=== PATIENT | female | born 1990 | race Caucasian/White ===

== ENCOUNTER 2016-10-04 16:26 | Emergency (ER) | payer OTHER ==
[~2016-10-04] VITALS: Wt 51.0 kg
[~2016-10-04 16:26] MED LIST: CEPH-443 PO; CIPR500T4 PO; CODE118S PO; DIAZ-90 PO; HYDR-906 PO; IBUP-1542 PO; IBUP800T25 PO; NAPR-260 PO; ONDA4TAB14 PO; ONDA4TAB8 PO; PHEN-538 PO
[2016-10-04] MEDS ORDERED: FLUT9.9S NASAL (17:04)
[2016-10-04] MEDS ORDERED: IBUP-1542 PO (17:04)
--- NOTE | 2016-10-04 17:08 | ERD ---
ER Documentation Chief Complaint Date/Time DATE: 10/04/16 TIME: 17:06 Chief Complaint Back pain, cough HPI 26-year-old female comes in with right-sided lower back pain that radiates to right leg, as well as cough congestion for approximately 2 days now. Patient describes as radiating pain, sharp, achy, moderate pain he has had for a month now, she states that it improved with the injection that gave her last time. She denies saddle anesthesia or loss of bowel bladder function. She also complains of a cough, dry, no fever, shortness of breath, chest pain. ROS All systems reviewed and are negative except as per history of present illness. Medications Home Meds Active Scripts Ibuprofen* (Motrin*) 600 Mg Tab, 600 MG PO Q6, #30 TAB Prov:AGNES SWANSON PA-C 10/04/16 Fluticasone Propionate (Flonase Allergy Relief) 9.9 Ml [place].susp, 1 SPRAY NASAL DAILY, #1 BOTTLE TO EACH NOSTRIL Prov:AGNES SWANSON PA-C 10/04/16 Diazepam* (Valium*) 5 Mg Tablet, 5 MG PO Q8 Y for MUSCLE SPASMS, #15 TAB Prov:MIKE WATKINS PA-C 08/18/16 Naproxen* (Naprosyn*) 500 Mg Tablet, 500 MG PO BID Y for PAIN AND/OR INFLAMMATION, #30 TAB Prov:MIKE WATKINS PA-C 08/18/16 Phenazopyridine Hcl* (Pyridium*) 200 Mg Tab, 200 MG PO TID Y for URINARY PAIN, # 6 TAB Prov:BJORN DÍAZ NP 07/27/16 Ondansetron (Ondansetron Odt) 4 Mg Tab.rapdis, 4 MG PO Q8 Y for NAUSEA AND/OR VOMITING, #30 TAB Prov:BJORN DÍAZ NP 07/27/16 Hydrocodone/Acetaminophen ([place] 5-325 Tablet) 1 Each Tablet, 1 TAB PO Q6H Y for PAIN, #20 TAB Prov:BJORN DÍAZ NP 07/27/16 Ciprofloxacin Hcl* (Ciprofloxacin Hcl*) 500 Mg Tablet, 500 MG PO BID for 10 Days , TAB Prov:BJORN DÍAZ NP 07/27/16 Ibuprofen* (Motrin*) 800 Mg Tab, 800 MG PO Q8 Y for PAIN AND OR ELEVATED TEMP, # 30 TAB Prov:SARANYA REEVES NP 06/16/16 Ibuprofen* (Motrin*) 600 Mg Tab, 600 MG PO Q6 for 7 Days, #30 TAB 0 Refills Prov:KE KENNEDY PA-C 02/29/16 Cephalexin* (Keflex*) 500 Mg Capsule, 500 MG PO TID for 3 Days, CAP Prov:ARLENEDENIRUBI DO 10/22/15 Ibuprofen* (Motrin*) 600 Mg Tab, 600 MG PO Q6H Y for PAIN AND OR ELEVATED TEMP, #14 TAB Prov:ARLENERUBI DO 10/22/15 Promethazine w/Codeine* (Phenergan w/Codeine* Syrup) 473 Ml Syrup, 5 ML PO Q6H Y for COUGH for 7 Days, ML Prov:DEANNA LAN MD 09/18/15 Ibuprofen* (Motrin*) 600 Mg Tab, 600 MG PO Q6H Y for PAIN AND OR ELEVATED TEMP, #30 Prov:WILLI BLEVINS PA-C 04/25/15 Reported Medications Ondansetron Hcl* (Zofran*) 4 Mg Tablet, 4 MG PO Q6H Y for NAUSEA AND OR VOMITING , TAB 09/21/14 Cephalexin* (Keflex*) 500 Mg Capsule, 500 MG PO BID X 7 DAYS, CAP 09/21/14 Ibuprofen* (Ibuprofen*) 600 Mg Tablet, 600 MG PO Q6-8 HOURS Y for PAIN, TAB 09/21/14 Allergies Allergies: Coded Allergies: No Known Drug Allergies (Verified Allergy, Mild, 10/22/15) PMhx/Soc History of Surgery: No Anesthesia Reaction: No Hx Neurological Disorder: No Hx Respiratory Disorders: No Hx Cardiac Disorders: No Hx Psychiatric Problems: No Hx Miscellaneous Medical Probl: No Hx Alcohol Use: No Hx Substance Use: No Hx Tobacco Use: No Physical Exam Vitals Vital Signs Date Time Temp Pulse Resp B/P Pulse Ox O2 Delivery O2 Flow Rate FiO2 10/04/16 16:50 98.3 89 20 102/60 98 Physical Exam General: Well-developed, well-nourished. The patient appears in no acute distress. HEENT: Head is normocephalic, atraumatic. No scleral icterus. Pupils are equal , round, and reactive. Oral mucous membranes are moist. No pharyngeal erythema. Neck: Supple. Nontender. Lungs: Clear to auscultation. Normal air movement. Heart: Regular rate and rhythm. S1 and S2 are normal. No murmurs, gallops, or rubs. Abdomen: Soft, nontender, nondistended. Bowel sounds are normoactive. Back: No midline tenderness, no step-offs, atraumatic. Patient has strength 5 out of 5 bilaterally to lower extremities. Extremities: No clubbing or cyanosis. Normal pulses. Moving extremities x 4. No weakness. Neurologic: Alert and oriented 3. No focal deficits. Skin: Normal turgor. No rash or lesions. Procedures/MDM The patient is a 26 who comes in with an acute upper respiratory infection, presumed viral. The patient has a differential diagnosis of a viral upper respiratory infection, bacterial upper respiratory infection, bronchitis, pneumonia, pharyngitis, laryngitis, epiglottitis, croup, pneumonia. Patient has a normal pulmonary examination, clear breath sounds, normal pulse oximetry, with no corrective measures needed at this time. Fluids, rest, antipyretics were encouraged. Secondarily she is here for low back pain on the right side. She has some sciatica symptoms, do not see any neurologic deficits, signs of cauda equina or epidural abscess or sepsis. She states that the Toradol worked for last time, I did state that patient is being seen in for recheck at this time and we would be able to give her a pain prescription which she feels comfortable at this time living with. Departure Diagnosis: Primary Impression: URI (upper respiratory infection) Additional Impression: Back pain Condition: Good Patient Instructions: Back Pain W/ Sciatica, Uri, Viral, No Abx (Adult) Additional Instructions: Call your primary care doctor TOMORROW for an appointment during the next 1-2 days.See the doctor sooner or return here if your condition worsens before your appointment time. AGNES SWANSON PA-C Oct 04, 2016 17:08
== END 2016-10-04 17:05 | disposition home or self-care (01) ==
LOC: FTE 16:26 → E/R 17:05
DX: J06.9 Acute upper respiratory infection, unspecified (principal)
CPT/HCPCS: 99283

== ENCOUNTER 2017-03-03 22:29 | Emergency (ER) | payer OTHER ==
[~2017-03-03] VITALS: Ht 157.5 cm; Wt 50.5 kg
[~2017-03-03 22:29] MED LIST changes: +FLUT9.9S NASAL
[2017-03-03 22:31] VITALS: Ht 157.5 cm; Wt 50.5 kg
[2017-03-04 00:06] LABS: URINE BLOOD (Dip) POC Negative (NEGATIVE)
[2017-03-04] MEDS ORDERED: CEPH-443 PO (00:37)
[2017-03-04] MEDS ORDERED: PHEN-538 PO (00:37)
--- NOTE | 2017-03-04 00:43 | ERD ---
ER Documentation Chief Complaint Date/Time DATE: 03/04/17 TIME: 00:41 Chief Complaint LEFT SIDED ABD PAIN RADAITING TO BACK X 3 DAYS HPI Patient is a 26-year-old female who is complaining of dysuria and increased urinary frequency for the past 3 days. She also has lower back pain is bilateral and achy. Last menstrual period was on the 15. Denies any fever, nausea, vomiting, hematuria. ROS All systems reviewed and are negative except as per history of present illness. Medications Home Meds Active Scripts Phenazopyridine Hcl* (Pyridium*) 200 Mg Tab, 200 MG PO TID Y for URINARY PAIN, # 6 TAB Prov:NORI ORTIZ PA-C 03/04/17 Cephalexin* (Keflex*) 500 Mg Capsule, 500 MG PO BID for 5 Days, CAP Prov:NORI ORTIZ PA-C 03/04/17 Ibuprofen* (Motrin*) 600 Mg Tab, 600 MG PO Q6, #30 TAB Prov:AGNES SWANSON PA-C 10/04/16 Fluticasone Propionate (Flonase Allergy Relief) 9.9 Ml [place].susp, 1 SPRAY NASAL DAILY, #1 BOTTLE TO EACH NOSTRIL Prov:AGNES SWANSON PA-C 10/04/16 Diazepam* (Valium*) 5 Mg Tablet, 5 MG PO Q8 Y for MUSCLE SPASMS, #15 TAB Prov:MIKE WATKINS PA-C 08/18/16 Naproxen* (Naprosyn*) 500 Mg Tablet, 500 MG PO BID Y for PAIN AND/OR INFLAMMATION, #30 TAB Prov:MIKE WATKINS PA-C 08/18/16 Phenazopyridine Hcl* (Pyridium*) 200 Mg Tab, 200 MG PO TID Y for URINARY PAIN, # 6 TAB Prov:BJORN DÍAZ NP 07/27/16 Ondansetron (Ondansetron Odt) 4 Mg Tab.rapdis, 4 MG PO Q8 Y for NAUSEA AND/OR VOMITING, #30 TAB Prov:BJORN DÍAZ NP 07/27/16 Hydrocodone/Acetaminophen ([place] 5-325 Tablet) 1 Each Tablet, 1 TAB PO Q6H Y for PAIN, #20 TAB Prov:BJORN DÍAZ NP 07/27/16 Ciprofloxacin Hcl* (Ciprofloxacin Hcl*) 500 Mg Tablet, 500 MG PO BID for 10 Days , TAB Prov:BJORN DÍAZ NP 07/27/16 Ibuprofen* (Motrin*) 800 Mg Tab, 800 MG PO Q8 Y for PAIN AND OR ELEVATED TEMP, # 30 TAB Prov:SARANYA REEVES NP 06/16/16 Ibuprofen* (Motrin*) 600 Mg Tab, 600 MG PO Q6 for 7 Days, #30 TAB 0 Refills Prov:KE KENNEDY PA-C 02/29/16 Cephalexin* (Keflex*) 500 Mg Capsule, 500 MG PO TID for 3 Days, CAP Prov:GREENRUBI DO 10/22/15 Ibuprofen* (Motrin*) 600 Mg Tab, 600 MG PO Q6H Y for PAIN AND OR ELEVATED TEMP, #14 TAB Prov:GREENRUBI DO 10/22/15 Promethazine w/Codeine* (Phenergan w/Codeine* Syrup) 473 Ml Syrup, 5 ML PO Q6H Y for COUGH for 7 Days, ML Prov:DEANNA LAN MD 09/18/15 Ibuprofen* (Motrin*) 600 Mg Tab, 600 MG PO Q6H Y for PAIN AND OR ELEVATED TEMP, #30 Prov:WILLI BLEVINS PA-C 04/25/15 Reported Medications Ondansetron Hcl* (Zofran*) 4 Mg Tablet, 4 MG PO Q6H Y for NAUSEA AND OR VOMITING , TAB 09/21/14 Cephalexin* (Keflex*) 500 Mg Capsule, 500 MG PO BID X 7 DAYS, CAP 09/21/14 Ibuprofen* (Ibuprofen*) 600 Mg Tablet, 600 MG PO Q6-8 HOURS Y for PAIN, TAB 09/21/14 Allergies Allergies: Coded Allergies: No Known Drug Allergies (Verified Allergy, Mild, 10/22/15) PMhx/Soc History of Surgery: No Anesthesia Reaction: No Hx Neurological Disorder: No Hx Respiratory Disorders: No Hx Cardiac Disorders: No Hx Psychiatric Problems: No Hx Miscellaneous Medical Probl: No Hx Alcohol Use: No Hx Substance Use: No Hx Tobacco Use: No Smoking Status: Never smoker FmHx Family History: No diabetes Physical Exam Vitals Vital Signs Date Time Temp Pulse Resp B/P Pulse Ox O2 Delivery O2 Flow Rate FiO2 03/03/17 22:31 98.5 83 20 101/64 98 Physical Exam General: well developed, well nourished, alert, nontoxic, no distress Head: normocephalic, atraumatic Eyes: PERRL, normal conjunctiva Neck: Supple, nontender, no lymphadenopathy, no midline tenderness Respiratory: Clear to auscaultation bilaterally, speaks in full sentences, no use of accesory muscles or labored breathing, no rales, ronchi, or wheezing Cardiovascular: RRR, No murmurs GI: soft, non tender, non distended, negative murphys sign, negative mcburneys point tenderness, no cva tenderness bilaterally, no rebound or guarding Back: no midline tenderness, no step offs or bony abnormalities, sensation to light touch in tact Extremities: moving all extremities normally, normal gait, no edema Results 24 hrs Laboratory Tests Test 03/04/17 00:10 Bedside Urine pH (LAB) 6.0 Bedside Urine Protein (LAB) Trace Bedside Urine Glucose (UA) Negative Bedside Urine Ketones (LAB) Negative Bedside Urine Blood Negative Bedside Urine Nitrite (LAB) Negative Bedside Urine Leukocyte Esterase (L Trace Procedures/MDM 26-year-old female presents with dysuria and increased urinary frequency. Her vital signs are all within normal limits and she is well-appearing in no distress. She has a benign abdominal exam and she has no CVA tenderness. No tenderness over the gallbladder of the appendix. I doubt any emergent cause of her symptoms including pyelonephritis, appendicitis, kidney stones, acute abdomen. Urine did show evidence of possible urinary tract infection she will be treated with Keflex and Pyridium. Recommended this patient follow up with her primary care doctor within 48 hours or return to the emergency room for any worsening of symptoms. However this time I do believe there is suitable for outpatient management. I answered all their questions and they agreed with the plan and were discharged home. Departure Diagnosis: Primary Impression: Cystitis Condition: Stable Patient Instructions: Cystitis Additional Instructions: Call your primary care doctor TOMORROW for an appointment during the next 1-2 days.See the doctor sooner or return here if your condition worsens before your appointment time. NORI ORTIZ PA-C Mar 04, 2017 00:42
== END 2017-03-04 00:46 | disposition home or self-care (01) ==
LOC: FTE 22:29
DX: N30.90 Cystitis, unspecified without hematuria (principal)
CPT/HCPCS: 81003; Z7502; 99283

== ENCOUNTER 2017-05-18 13:05 | Emergency (ER) | payer OTHER ==
[~2017-05-18] VITALS: Ht 157.5 cm; Wt 52.0 kg
[2017-05-18 13:24] VITALS: Ht 157.5 cm; Wt 52.0 kg
[2017-05-18] MEDS ORDERED: KETOROLAC 30 MG INJ IM STA (14:09)
--- NOTE | 2017-05-18 14:27 | ERD ---
ER Documentation Chief Complaint Date/Time DATE: 05/18/17 TIME: 14:14 Chief Complaint Complains of right leg, abdominal,back pain and headache x 3 days HPI This is a 27 year old female presenting to ER with complaints of abdominal pain , right lower back pain and right leg pain x 3 days. Patient states she has generalized, non specific abdominal pain and when asked where she has pain she motions over entire abdomen. Patient also states she has had a lot of "reflux. " No nausea or vomiting. No fevers. No pelvic pain or vaginal bleeding. ROS All systems reviewed and are negative except as per history of present illness. Medications Home Meds Active Scripts Ibuprofen* (Motrin*) 400 Mg Tab, 400 MG PO Q6, #15 TAB Prov:HERBERT SHERMAN NP 05/18/17 Nitrofurantoin Monohyd Macrocr* (Macrobid*) 100 Mg Capsr, 100 MG PO BID for 5 Days, CAP Prov:HERBERT SHERMAN NP 05/18/17 Phenazopyridine Hcl* (Pyridium*) 200 Mg Tab, 200 MG PO TID Y for URINARY PAIN, # 6 TAB Prov:NORI ORTIZ PA-C 03/04/17 Cephalexin* (Keflex*) 500 Mg Capsule, 500 MG PO BID for 5 Days, CAP Prov:NORI ORTIZ PA-C 03/04/17 Ibuprofen* (Motrin*) 600 Mg Tab, 600 MG PO Q6, #30 TAB Prov:AGNES SWANSON PA-C 10/04/16 Fluticasone Propionate (Flonase Allergy Relief) 9.9 Ml [place].susp, 1 SPRAY NASAL DAILY, #1 BOTTLE TO EACH NOSTRIL Prov:AGNES SWANSON PA-C 10/04/16 Diazepam* (Valium*) 5 Mg Tablet, 5 MG PO Q8 Y for MUSCLE SPASMS, #15 TAB Prov:MIKE WATKINS PA-C 08/18/16 Naproxen* (Naprosyn*) 500 Mg Tablet, 500 MG PO BID Y for PAIN AND/OR INFLAMMATION, #30 TAB Prov:MIKE WATKINS PA-C 08/18/16 Phenazopyridine Hcl* (Pyridium*) 200 Mg Tab, 200 MG PO TID Y for URINARY PAIN, # 6 TAB Prov:BJORN DÍAZ NP 07/27/16 Ondansetron (Ondansetron Odt) 4 Mg Tab.rapdis, 4 MG PO Q8 Y for NAUSEA AND/OR VOMITING, #30 TAB Prov:BJORN DÍAZ NP 07/27/16 Hydrocodone/Acetaminophen ([place] 5-325 Tablet) 1 Each Tablet, 1 TAB PO Q6H Y for PAIN, #20 TAB Prov:BJORN DÍAZ NP 07/27/16 Ciprofloxacin Hcl* (Ciprofloxacin Hcl*) 500 Mg Tablet, 500 MG PO BID for 10 Days , TAB Prov:BJORN DÍAZ NP 07/27/16 Ibuprofen* (Motrin*) 800 Mg Tab, 800 MG PO Q8 Y for PAIN AND OR ELEVATED TEMP, # 30 TAB Prov:SARANYA REEVES NP 06/16/16 Ibuprofen* (Motrin*) 600 Mg Tab, 600 MG PO Q6 for 7 Days, #30 TAB 0 Refills Prov:KE KENNEDY PA-C 02/29/16 Cephalexin* (Keflex*) 500 Mg Capsule, 500 MG PO TID for 3 Days, CAP Prov:RUBI JACOBS DO 10/22/15 Ibuprofen* (Motrin*) 600 Mg Tab, 600 MG PO Q6H Y for PAIN AND OR ELEVATED TEMP, #14 TAB Prov:RUBI JACOBS DO 10/22/15 Promethazine w/Codeine* (Phenergan w/Codeine* Syrup) 473 Ml Syrup, 5 ML PO Q6H Y for COUGH for 7 Days, ML Prov:DEANNA LAN MD 09/18/15 Ibuprofen* (Motrin*) 600 Mg Tab, 600 MG PO Q6H Y for PAIN AND OR ELEVATED TEMP, #30 Prov:WILLI BLEVINS PA-C 04/25/15 Reported Medications Ondansetron Hcl* (Zofran*) 4 Mg Tablet, 4 MG PO Q6H Y for NAUSEA AND OR VOMITING , TAB 09/21/14 Cephalexin* (Keflex*) 500 Mg Capsule, 500 MG PO BID X 7 DAYS, CAP 09/21/14 Ibuprofen* (Ibuprofen*) 600 Mg Tablet, 600 MG PO Q6-8 HOURS Y for PAIN, TAB 09/21/14 Allergies Allergies: Coded Allergies: No Known Drug Allergies (Verified Allergy, Mild, 10/22/15) PMhx/Soc History of Surgery: No Anesthesia Reaction: No Hx Neurological Disorder: No Hx Respiratory Disorders: No Hx Cardiac Disorders: No Hx Psychiatric Problems: No Hx Miscellaneous Medical Probl: No Hx Alcohol Use: No Hx Substance Use: No Hx Tobacco Use: No Physical Exam Vitals Vital Signs Date Time Temp Pulse Resp B/P Pulse Ox O2 Delivery O2 Flow Rate FiO2 05/18/17 18:24 69 18 102/63 100 Room Air 05/18/17 13:24 98.4 70 20 100/56 100 Physical Exam Const: No acute distress, alert Head: Atraumatic Eyes: Normal Conjunctiva ENT: Normal External Ears, Nose and Mouth. Neck: Full range of motion..~ No meningismus. Resp: Clear to auscultation bilaterally. No wheezing, rhonchi or crackles. Cardio: Regular rate and rhythm, no murmurs Abd: Soft, non tender, non distended. Normal bowel sounds Skin: No petechiae or rashes Back: No midline or flank tenderness Ext: No cyanosis, or edema. No erythema. Neur: Awake and alert Psych: Normal Mood and Affect Results 24 hrs Laboratory Tests Test 05/18/17 14:52 Bedside Urine pH (LAB) 5.5 Bedside Urine Protein (LAB) Negative Bedside Urine Glucose (UA) Negative Bedside Urine Ketones (LAB) Negative Bedside Urine Blood Negative Bedside Urine Nitrite (LAB) Negative Bedside Urine Leukocyte Esterase (L 1+ Current Medications Medications (Trade) Dose Ordered Sig/Stefany Route PRN Reason Start Time Stop Time Status Last Admin Dose Admin Ketorolac Tromethamine (Toradol) 30 mg ONCE STAT IM 05/18/17 14:09 05/18/17 14:11 DC 05/18/17 14:56 Famotidine (Pepcid) 20 mg ONCE ONCE PO 05/18/17 14:30 05/18/17 14:31 DC 05/18/17 14:56 Miscellaneous Medication (Gi Cocktail (2)) 40 ml ONCE ONCE PO 05/18/17 14:30 05/18/17 14:31 DC 05/18/17 14:56 Acetaminophen/ Hydrocodone Bitart ([place] (5/325)) 1 tab ONCE ONCE PO 05/18/17 16:00 05/18/17 16:01 DC 05/18/17 15:42 Procedures/MDM MDM: 27 year old female presents to ER with generalized, non-specific abdominal pain, right back pain and right leg pain x 3 days. Patient's abdominal pain is non specific and generalized. Patient given Toradol, Pepcid and Gi cocktail while in the ED. Upon reassessment, patient states abdominal pain has resolved however she continues to have right knee pain. No trauma or injury to leg or knee recently per patient. No swelling on physical exam. Patient is able to ambulate without difficulty. An xray and ultrasound was ordered given patient's continued pain. XR right knee Reviewed by radiologist as normal. Ultrasound right leg reviewed by radiologist as no sonographic evidence for deep venous thrombosis. Urine dip shows 1+ leukocyte esterase otherwise negative. Urine is negative. Upon recheck, patient's pain has improved. Vitals are stable. No fevers. Low suspicion for acute dislocation, fracture or DVT. Differential diagnosis includes but not limited to muscle strain, osteoarthritis, sciatica and muscle spasm. Differential diagnosis includes but not limited to acute appendicitis, diverticulitis, diverticulosis, bowel obstruction, constipation, infectious colitis, irritable bowel syndrome, inflammatory bowel disease, viral gastroenteritis, abdominal aortic aneurysm, food intolerance, celiac disease, UTI, pyelonephritis, nephrolithiasis, acute urinary retention or colorectal cancer. I doubt any emergent conditions such as appendicitis, diverticulitis, bowel obstruction, abdominal aortic aneurysm at this time due to normal vital signs and normal lab results. Patient is appropriate for outpatient management. Instructed patient to return to ED in 8 hours for abdominal pain recheck. Instructed patient to follow-up with primary care provider in the next 2-3 days for reassessment and additional management. Return to ED for any high fever, chest pain, difficulty breathing, shortness breath, wheezing, vomiting, diarrhea, abdominal pain or any new or worsening symptoms. Patient verbalizes understanding. All questions answered at discharge. Disclaimer: Inadvertent spelling and grammatical errors are likely due to EHR/ dictation software use and do not reflect on the overall quality of patient care. Also, please note that the electronic time recorded on this note does not necessarily reflect the actual time of the patient encounter. Departure Diagnosis: Primary Impression: Pain of right leg Condition: Stable HERBERT SHERMAN NP May 18, 2017 14:25
[2017-05-18] MEDS ORDERED: LIDOCAINE/MYLANTA 40 ML BTL PO ONE (14:30)
[2017-05-18] MEDS ORDERED: FAMOTIDINE 20 MG TAB PO ONE (14:30)
[2017-05-18 14:46] LABS: URINE BLOOD (Dip) POC Negative (NEGATIVE)
[2017-05-18] MEDS ORDERED: HYDROCODONE/APAP (5/325) TAB PO ONE (16:00)
--- NOTE | 2017-05-18 16:11 | RADRPT ---
PROCEDURE: RIGHT knee x-ray CLINICAL INDICATION: Knee pain TECHNIQUE: AP, lateral and tunnelviews of the knee were obtained. COMPARISON: 02/29/2016 FINDINGS: There is normal mineralization. No acute fracture or dislocation is seen. There is no joint effusion. There are no significant degenerative changes. There is no significant soft tissue swelling. RPTAT: AA IMPRESSION: Normal x-ray of the right knee. .Vazquez Sloan MD, MD Date Time Electronically viewed and signed by .Vazquez Sloan MD, on 05/18/2017 16:11 .S/
--- NOTE | 2017-05-18 17:42 | RADRPT ---
PROCEDURE: US Lower extremity Venous. CLINICAL INDICATION: Lower extremity pain and swelling TECHNIQUE: Multiple sonographic images of the right lower extremity deep venous system was obtaine d utilizing grayscale, color-flow, compressive sonography and doppler imaging with augmentation. Th e images were reviewed on a PACS workstation. COMPARISON: None. FINDINGS: There is normal compressibility and flow within the right common femoral, superficial femoral and po pliteal veins. Antegrade flow seen in the posterior tibial and peroneal veins. IMPRESSION: No sonographic evidence for deep venous thrombosis. RPTAT: AA .Jonh Park MD, Date Time Electronically viewed and signed by .Jonh Park MD, on 05/18/2017 17:41 .P/
[2017-05-18] MEDS ORDERED: IBUP400T22 PO (18:11)
[2017-05-18] MEDS ORDERED: NITR-58 PO (18:11)
[2017-05-18 18:24] VITALS: BP 102/63; PULSE 69; RESP 18
== END 2017-05-18 18:19 | disposition home or self-care (01) ==
LOC: FTE 13:05
DX: M79.604 Pain in right leg (principal)
CPT/HCPCS: 73562; 81003; 93971; 96372; J1885; Z7502; Z7610

== ENCOUNTER 2017-07-07 11:47 | Emergency (ER) | payer OTHER ==
[~2017-07-07] VITALS: Ht 152.4 cm; Wt 52.0 kg
[~2017-07-07 11:47] MED LIST changes: +IBUP400T22 PO; +NITR-58 PO
[2017-07-07 11:52] VITALS: Ht 152.4 cm; Wt 52.0 kg
[2017-07-07 12:52] LABS: BASOPHIL # 0.1 10^3/ul (0.0-0.1); BASOPHILS % 0.8 % (0.0-2.0); EOSINOPHILS # 0.1 10^3/ul (0.0-0.5); EOSINOPHILS % 0.8 % (0.0-7.0); HEMATOCRIT 34.8 % (37.0-47.0); HEMOGLOBIN 11.2 g/dl (12.0-16.0); LYMPHOCYTES # 1.3 10^3/ul (0.8-2.9); LYMPHOCYTES % 22.3 % (15.0-51.0); MEAN CORPUSCULAR HEMOGLOBIN 24.6 pg (29.0-33.0); MEAN CORPUSCULAR HGB CONC 32.2 g/dl (32.0-37.0); MEAN CORPUSCULAR VOLUME 76.5 fl (82.0-101.0); MEAN PLATELET VOLUME 9.8 fl (7.4-10.4); MONOCYTE # 0.5 10^3/ul (0.3-0.9); MONOCYTES % 8.8 % (0.0-11.0); NEUTROPHILS % 67.1 % (39.0-77.0); PLATELET COUNT 222 10^3/UL (140-415); RED BLOOD COUNT 4.55 10^6/ul (4.20-5.40)
[2017-07-07 13:05] LABS: ADD UMIC YES; UR ASCORBIC ACID NEGATIVE (NEGATIVE); UR BILIRUBIN (Dip) NEGATIVE (NEGATIVE); UR BLOOD (Dip) NEGATIVE (NEGATIVE); UR CLARITY SLIGHTLY CLOUDY (CLEAR); UR COLOR YELLOW (YELLOW); UR GLUCOSE (Dip) NEGATIVE (NEGATIVE); UR KETONES (Dip) NEGATIVE (NEGATIVE); UR LEUKOCYTE ESTERASE (Dip) 3+ Leu/ul (NEGATIVE); UR MUCUS FEW /HPF (NONE SEEN); UR NITRITE (Dip) NEGATIVE (NEGATIVE); UR RBC 7 /HPF (0-5); UR SPECIFIC GRAVITY (Dip) 1.027 (1.003-1.030); UR SQUAMOUS EPITHELIAL CELL FEW /HPF (FEW); UR TOTAL PROTEIN (Dip) NEGATIVE (NEGATIVE); UR UROBILINOGEN (Dip) NEGATIVE (NEGATIVE)
[2017-07-07 13:16] LABS: ALBUMIN 4.1 g/dl (3.3-4.9); ALBUMIN/GLOBULIN RATIO 1.24; BILIRUBIN,INDIRECT 0.3 mg/dl (0-1.1); BILIRUBIN,TOTAL 0.3 mg/dl (0.2-1.3); CALCIUM 9.2 mg/dl (8.4-10.2); CREATININE 0.65 mg/dl (0.44-1.00); POTASSIUM 3.4 mmol/L (3.5-5.1); TOTAL PROTEIN 7.4 g/dl (6.1-8.1)
--- NOTE | 2017-07-07 13:39 | RADRPT ---
PROCEDURE: US Abdomen. CLINICAL INDICATION: Right upper quadrant Abdominal pain. TECHNIQUE: Multiple real-time images were acquired of the patient's abdomen and retroperitoneum ut ilizing a high resolution transducer. COMPARISON: None FINDINGS: The liver demonstrates normal echogenicity and size and no focal lesions are seen. The liver measure s 12.2 cm. No gallstones are identified within the gallbladder. There is no pericholecystic fluid or gallbladd er wall thickening. No intra or extrahepatic biliary dilatation is seen. The common bile duct measu res 1.6 mm in maximal dimension. Visualized portions of the pancreas are unremarkable. The right kidney is unremarkable measuring 9.2 cm. No collecting system dilatation, stone or solid m ass. IMPRESSION: Unremarkable examination. RPTAT: PP .Shad Marlow MD, MD Date Time Electronically viewed and signed by .Shad Marlow MD, MD on 07/07/2017 13:39 .M/
--- NOTE | 2017-07-07 13:54 | RADRPT ---
PROCEDURE: US OB. CLINICAL INDICATION: Pelvic pain TECHNIQUE: Transabdominal and transvaginal views of the pelvis are available for review. COMPARISON: No prior studies are available for comparison. FINDINGS: A single intrauterine gestational sac containing a pole and yolk sac is present. The measureme nts are as follows Keys-rump length:2.4 mm heart rate:115 bpm Ultrasound estimated gestational age:5 weeks 6 days' ELSI: 03/03/2018 No ovarian or adnexal mass lesion is seen. There is no free fluid. IMPRESSION: 1. Single live intrauterine with an estimated gestational age of 5 weeks 6 days. 2. ELSI 03/03/2018 RPTAT: HSM .Shad Marlow MD, Date Time Electronically viewed and signed by .Shad Marlow MD, MD on 07/07/2017 13:54 .M/
[2017-07-07] MEDS ORDERED: CEPH-443 PO (14:18)
--- NOTE | 2017-07-28 14:18 | ERD ---
ER Documentation Chief Complaint Chief Complaint RT UPPER ABD PAIN WITH NAUSEA X 4 DAYS , 7 WEEKS PREG HPI 27 year old female presents with abdominal lance x 4 days. 7 weeks . nausea but no vomitting. no dysuria or hematuria but increased urinaary frequency. no vag bleeding. no fever ROS All systems reviewed and are negative except as per history of present illness. Medications Home Meds Active Scripts Cephalexin* (Keflex*) 500 Mg Capsule, 500 MG PO BID for 5 Days, CAP Prov:NORI ORTIZ PA-C 07/07/17 Ibuprofen* (Motrin*) 400 Mg Tab, 400 MG PO Q6, #15 TAB Prov:HERBERT SHERMAN NP 05/18/17 Nitrofurantoin Monohyd Macrocr* (Macrobid*) 100 Mg Capsr, 100 MG PO BID for 5 Days, CAP Prov:HERBERT SHERMAN NP 05/18/17 Phenazopyridine Hcl* (Pyridium*) 200 Mg Tab, 200 MG PO TID Y for URINARY PAIN, # 6 TAB Prov:NORI ORTIZ PA-C 03/04/17 Cephalexin* (Keflex*) 500 Mg Capsule, 500 MG PO BID for 5 Days, CAP Prov:NORI ORTIZ PA-C 03/04/17 Ibuprofen* (Motrin*) 600 Mg Tab, 600 MG PO Q6, #30 TAB Prov:AGNES SWANSON PA-C 10/04/16 Fluticasone Propionate (Flonase Allergy Relief) 9.9 Ml [place].susp, 1 SPRAY NASAL DAILY, #1 BOTTLE TO EACH NOSTRIL Prov:AGNES SWANSON PA-C 10/04/16 Diazepam* (Valium*) 5 Mg Tablet, 5 MG PO Q8 Y for MUSCLE SPASMS, #15 TAB Prov:MIKE WATKINS PA-C 08/18/16 Naproxen* (Naprosyn*) 500 Mg Tablet, 500 MG PO BID Y for PAIN AND/OR INFLAMMATION, #30 TAB Prov:MIKE WATKINS PA-C 08/18/16 Phenazopyridine Hcl* (Pyridium*) 200 Mg Tab, 200 MG PO TID Y for URINARY PAIN, # 6 TAB Prov:BJORN DÍAZ NP 07/27/16 Ondansetron (Ondansetron Odt) 4 Mg Tab.rapdis, 4 MG PO Q8 Y for NAUSEA AND/OR VOMITING, #30 TAB Prov:BJORN DÍAZ NP 07/27/16 Hydrocodone/Acetaminophen ([place] 5-325 Tablet) 1 Each Tablet, 1 TAB PO Q6H Y for PAIN, #20 TAB Prov:BJORN DÍAZ NP 07/27/16 Ciprofloxacin Hcl* (Ciprofloxacin Hcl*) 500 Mg Tablet, 500 MG PO BID for 10 Days , TAB Prov:BJORN DÍAZ NP 07/27/16 Ibuprofen* (Motrin*) 800 Mg Tab, 800 MG PO Q8 Y for PAIN AND OR ELEVATED TEMP, # 30 TAB Prov:SARANYA REEVES NP 06/16/16 Ibuprofen* (Motrin*) 600 Mg Tab, 600 MG PO Q6 for 7 Days, #30 TAB 0 Refills Prov:KE KENNEDY PA-C 02/29/16 Cephalexin* (Keflex*) 500 Mg Capsule, 500 MG PO TID for 3 Days, CAP Prov:RUBI JACOBS DO 10/22/15 Ibuprofen* (Motrin*) 600 Mg Tab, 600 MG PO Q6H Y for PAIN AND OR ELEVATED TEMP, #14 TAB Prov:RUBI JACOBS DO 10/22/15 Promethazine w/Codeine* (Phenergan w/Codeine* Syrup) 473 Ml Syrup, 5 ML PO Q6H Y for COUGH for 7 Days, ML Prov:DEANNA LAN MD 09/18/15 Ibuprofen* (Motrin*) 600 Mg Tab, 600 MG PO Q6H Y for PAIN AND OR ELEVATED TEMP, #30 Prov:WILLI BLEVINS PA-C 04/25/15 Reported Medications Ondansetron Hcl* (Zofran*) 4 Mg Tablet, 4 MG PO Q6H Y for NAUSEA AND OR VOMITING , TAB 09/21/14 Cephalexin* (Keflex*) 500 Mg Capsule, 500 MG PO BID X 7 DAYS, CAP 09/21/14 Ibuprofen* (Ibuprofen*) 600 Mg Tablet, 600 MG PO Q6-8 HOURS Y for PAIN, TAB 09/21/14 Allergies Allergies: Coded Allergies: No Known Drug Allergies (Verified Allergy, Mild, 10/22/15) PMhx/Soc History of Surgery: No Anesthesia Reaction: No Hx Neurological Disorder: No Hx Respiratory Disorders: No Hx Cardiac Disorders: No Hx Psychiatric Problems: No Hx Miscellaneous Medical Probl: No Hx Alcohol Use: No Hx Substance Use: No Hx Tobacco Use: No Smoking Status: Never smoker FmHx Family History: No coronary disease, No diabetes, No other Physical Exam Physical Exam Const: [] Head: Atraumatic Eyes: Normal Conjunctiva ENT: Normal External Ears, Nose and Mouth. Neck: Full range of motion..~ No meningismus. Resp: Clear to auscultation bilaterally Cardio: Regular rate and rhythm, no murmurs Abd: Soft,mild ruq tenderness, non distended. Normal bowel sounds, no cvat bilaterally Skin: No petechiae or rashes Back: No midline or flank tenderness Results 24 hrs Laboratory Tests Test 07/07/17 12:40 07/08/17 11:31 White Blood Count 6.010^3/ul Red Blood Count 4.5510^6/ul Hemoglobin 11.2g/dl Hematocrit 34.8% Mean Corpuscular Volume 76.5fl Mean Corpuscular Hemoglobin 24.6pg Mean Corpuscular Hemoglobin Concent 32.2g/dl Red Cell Distribution Width 17.0% Platelet Count 46740^3/UL Mean Platelet Volume 9.8fl Neutrophils % 67.1% Lymphocytes % 22.3% Monocytes % 8.8% Eosinophils % 0.8% Basophils % 0.8% Nucleated Red Blood Cells % 0.0/100WBC Neutrophils # 4.010^3/ul Lymphocytes # 1.310^3/ul Monocytes # 0.510^3/ul Eosinophils # 0.110^3/ul Basophils # 0.110^3/ul Nucleated Red Blood Cells # 0.010^3/ul Urine Color YELLOW Urine Clarity SLIGHTLY CLOUDY Urine pH 6.0 Urine Specific [place] 1.027 Urine Ketones NEGATIVEmg/dL Urine Nitrite NEGATIVEmg/dL Urine Bilirubin NEGATIVEmg/dL Urine Urobilinogen NEGATIVEmg/dL Urine Leukocyte Esterase 3+Smith/ul Urine Microscopic RBC 7/HPF Urine Microscopic WBC 26/HPF Urine Squamous Epithelial Cells FEW/HPF Urine Mucus FEW/HPF Urine Hemoglobin NEGATIVEmg/dL Urine Glucose NEGATIVEmg/dL Urine Total Protein NEGATIVEmg/dl Sodium Level 140mmol/L Potassium Level 3.4mmol/L Chloride Level 106mmol/L Carbon Dioxide Level 28mmol/L Anion Gap 9 Blood Urea Nitrogen 10mg/dl Creatinine 0.65mg/dl Glucose Level 65mg/dl Calcium Level 9.2mg/dl Total Bilirubin 0.3mg/dl Direct Bilirubin 0.00mg/dl Indirect Bilirubin 0.3mg/dl Aspartate Amino Transf (AST/SGOT) 22IU/L Alanine Aminotransferase (ALT/SGPT) 35IU/L Alkaline Phosphatase 49IU/L Total Protein 7.4g/dl Albumin 4.1g/dl Globulin 3.30g/dl Albumin/Globulin Ratio 1.24 Lipase 53U/L Beta HCG, Quantitative 77808.0mIU/ml Lab Scanned Report BLOOD [id number] Procedures/MDM no evidence of emergent pathology. pts history and PE is consistent with cystitis during ,she is discharged with appropriate abx. she should follow up with PCP within 2 days or sooner for new or worsening sx. Or return to the Erfor any concerns. Departure Diagnosis: Primary Impression: Cystitis during in first trimester, antepartum Condition: Stable Patient Instructions: Cystitis Additional Instructions: Llame al doctor MATRIP y naomie ignacia ELSA PARA DENTRO DE 1-2 VARELA.Dgale a la secretaria que nosotros le instruimos hacer esta elsa.Avise o llame si mathews condicin se empeora antes de la elsa. Regresa aqui si peor o no mejor. NORI ORTIZ PA-C Jul 28, 2017 14:18
[2017-08-03] MEDS ORDERED: ACET500C5 PO (16:05)
== END 2017-07-07 15:40 | disposition home or self-care (01) ==
LOC: FTE 11:47
DX: O23.41 Unspecified infection of urinary tract in pregnancy, first trimester (principal); R10.2 Pelvic and perineal pain; Z3A.01 Less than 8 weeks gestation of pregnancy
CPT/HCPCS: 76705; 76801; 76817; 80053; 81001; 83690; 84702; 85025; 86900; 86901; J2790; 36415

== ENCOUNTER 2017-08-03 12:42 | Emergency (ER) | END 2017-08-03 16:42 | disposition home or self-care (01) ==

== ENCOUNTER 2017-08-19 09:11 | Emergency (ER) | payer OTHER ==
[~2017-08-19] VITALS: Ht 157.5 cm; Wt 53.0 kg
[~2017-08-19 09:11] MED LIST changes: +ACET500C5 PO
[2017-08-19 09:14] VITALS: Ht 157.5 cm; Wt 53.0 kg
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
[2017-08-19] MEDS ORDERED: ACETAMINOPHEN 325 MG TAB PO STA (09:51)
[2017-08-19 10:11] LABS: BASOPHILS % 0.5 % (0.0-2.0); EOSINOPHILS % 0.5 % (0.0-7.0); HEMATOCRIT 35.1 % (37.0-47.0); HEMOGLOBIN 11.8 g/dl (12.0-16.0); LYMPHOCYTES # 1.2 10^3/ul (0.8-2.9); LYMPHOCYTES % 14.5 % (15.0-51.0); MEAN CORPUSCULAR HEMOGLOBIN 25.7 pg (29.0-33.0); MEAN CORPUSCULAR HGB CONC 33.6 g/dl (32.0-37.0); MEAN CORPUSCULAR VOLUME 76.5 fl (82.0-101.0); MEAN PLATELET VOLUME 9.8 fl (7.4-10.4); MONOCYTE # 0.5 10^3/ul (0.3-0.9); MONOCYTES % 6.6 % (0.0-11.0); NEUTROPHIL # 6.3 10^3/ul (1.6-7.5); NEUTROPHILS % 77.5 % (39.0-77.0); PLATELET COUNT 245 10^3/UL (140-415); RED BLOOD COUNT 4.59 10^6/ul (4.20-5.40); RED CELL DISTRIBUTION WIDTH 16.4 % (11.5-14.5); WHITE BLOOD COUNT 8.2 10^3/ul (4.8-10.8)
[2017-08-19 10:23] LABS: ADD UMIC YES; UR ASCORBIC ACID NEGATIVE (NEGATIVE); UR BACTERIA FEW /HPF (NONE SEEN); UR BILIRUBIN (Dip) NEGATIVE (NEGATIVE); UR BLOOD (Dip) NEGATIVE (NEGATIVE); UR CLARITY SLIGHTLY CLOUDY (CLEAR); UR COLOR YELLOW (YELLOW); UR GLUCOSE (Dip) NEGATIVE (NEGATIVE); UR KETONES (Dip) NEGATIVE (NEGATIVE); UR LEUKOCYTE ESTERASE (Dip) 3+ Leu/ul (NEGATIVE); UR MUCUS FEW /HPF (NONE SEEN); UR NITRITE (Dip) NEGATIVE (NEGATIVE); UR RBC 9 /HPF (0-5); UR SPECIFIC GRAVITY (Dip) 1.025 (1.003-1.030); UR SQUAMOUS EPITHELIAL CELL MODERATE /HPF (FEW); UR TOTAL PROTEIN (Dip) NEGATIVE (NEGATIVE); UR UROBILINOGEN (Dip) NEGATIVE (NEGATIVE)
--- NOTE | 2017-08-19 11:26 | RADRPT ---
PROCEDURE: US OB. CLINICAL INDICATION: Lower abdominal and back pain.. TECHNIQUE: Multiple sonographic images of the pelvis were obtained. Transabdominal scanning of th e pelvis are available for review. The images were reviewed on a PACS workstation. COMPARISON: 08/03/2017 FINDINGS: The uterus measures 12.2 x 9.1 x 9.4 cm. Intrauterine is identified. The crown-rump shavonne th equals 5.69 cm which corresponds to 12 weeks 2 days gestational age by ultrasound criteria. Gest ational sac size is 6.36 cm. cardiac activity is 148 beats per minute. No subchorionic hemorr armando is identified. The adnexa are unremarkable. There is no free fluid. The ovaries are normal in size shape and flow. IMPRESSION: 1. Single viable intrauterine gestation of approximately 12 weeks 2 days by crown-rump length.. RPTAT: QQ .Deniz Pritchett MD, MD Date Time Electronically viewed and signed by .Deniz Pritchett MD, on 08/19/2017 11:26 .L/
[2017-08-19] MEDS ORDERED: NITR-58 PO (11:52)
[2017-08-19] MEDS ORDERED: LIDOCAINE 1% (MDV) 20 ML INJ SC ONE (12:00)
[2017-08-19] MEDS ORDERED: CEFTRIAXONE 1 GM INJ IM ONE (12:00)
== END 2017-08-19 12:21 | disposition home or self-care (01) ==
LOC: FTE 09:11
DX: O26.891 Other specified pregnancy related conditions, first trimester (principal); O23.41 Unspecified infection of urinary tract in pregnancy, first trimester; R10.2 Pelvic and perineal pain; Z3A.12 12 weeks gestation of pregnancy
CPT/HCPCS: 36415; 76801; 81001; 84702; 85025; 96372; J0696; Z7502; Z7610

== ENCOUNTER 2017-09-11 23:34 | Emergency (ER) | END 2017-09-12 07:05 | disposition home or self-care (01) ==

== ENCOUNTER 2017-10-02 07:34 | Emergency (ER) | END 2017-10-02 11:25 | disposition home or self-care (01) ==

== ENCOUNTER 2018-01-01 11:11 | Outpatient (CLI) | END 2018-01-01 14:14 | disposition home or self-care (01) ==

== ENCOUNTER 2018-01-09 12:46 | Outpatient (CLI) | END 2018-01-09 16:42 | disposition home or self-care (01) ==

== ENCOUNTER 2018-07-19 10:55 | Emergency (ER) | END 2018-07-19 13:57 | disposition home or self-care (01) ==